=== PATIENT | female | born 1990 | race Caucasian/White ===

== ENCOUNTER 2018-08-16 21:14 | Emergency (ER) | payer OTHER ==
[~2018-08-16] VITALS: Ht 180.3 cm; Wt 67.3 kg
[2018-08-16 21:22] VITALS: Ht 180.3 cm; Wt 67.3 kg
[2018-08-16 22:06] VITALS: BP 116/82
== END 2018-08-16 22:06 | disposition home or self-care (01) ==
LOC: ED 21:14
DX: R06.02 Shortness of breath (principal); R05 Cough; R06.2 Wheezing